=== PATIENT | male | born 1940 | race Caucasian/White ===

== ENCOUNTER 2018-03-27 14:10 | Emergency (ER) | payer OTHER ==
[~2018-03-27] VITALS: Ht 177.8 cm; Wt 72.6 kg
[~2018-03-27 14:10] MED LIST: ASPI325 PO; ASPI81CH PO; ATOR40TA PO; CILO100 PO; CLOP75 PO; Cilostazol50 MG PO; SULTRIDS PO
[2018-03-27] MEDS ORDERED: LACTULOSE20 GM/30 M PT (17:24)
[2018-03-27] MEDS ORDERED: Cephalexin250 MG/5 M PO (17:24)
== END 2018-03-27 17:33 | disposition home or self-care (01) ==
LOC: ER 14:10
DX: T81.40XA Infection following a procedure, unspecified, initial encounter (principal); L03.311 Cellulitis of abdominal wall; K59.00 Constipation, unspecified; F17.200 Nicotine dependence, unspecified, uncomplicated; Z79.82 Long term (current) use of aspirin; Z79.899 Other long term (current) drug therapy
CPT/HCPCS: 49465; 99283-25; Q9963